=== PATIENT | female | born 1975 | race Two or more races ===

== ENCOUNTER → 2022-03-16 12:36 | Outpatient (BNVA) | payer OTHER, SELFPAY | PROVIDERS: Visit Provider Physician Assistant Medical | DX: S43.402A Unspecified sprain of left shoulder joint, initial encounter (principal); X50.3XXA Overexertion from repetitive movements, initial encounter | CPT/HCPCS: 99203 ==

== ENCOUNTER → 2022-03-23 14:42 | Outpatient (BNVA) | payer OTHER, SELFPAY | PROVIDERS: Visit Provider Physician Assistant Medical | DX: S43.402D Unspecified sprain of left shoulder joint, subsequent encounter (principal); X50.3XXD Overexertion from repetitive movements, subsequent encounter | CPT/HCPCS: 99214 ==

== ENCOUNTER → 2022-04-09 14:00 | Outpatient (BNVA) | payer OTHER, SELFPAY | PROVIDERS: Visit Provider Physician Assistant | DX: S46.912D Strain of unspecified muscle, fascia and tendon at shoulder and upper arm level, left arm, subsequent encounter (principal); X50.3XXD Overexertion from repetitive movements, subsequent encounter; M70.812 Other soft tissue disorders related to use, overuse and pressure, left shoulder | CPT/HCPCS: 73030; 99214 ==

== ENCOUNTER → 2022-04-23 13:13 | Outpatient (BNVA) | payer OTHER, SELFPAY | PROVIDERS: Visit Provider Physician Assistant | DX: M25.512 Pain in left shoulder (principal) | CPT/HCPCS: 99213 ==

== ENCOUNTER → 2022-06-18 14:27 | Outpatient (BNVA) | payer OTHER, SELFPAY | PROVIDERS: Visit Provider Physician Assistant | DX: S43.402D Unspecified sprain of left shoulder joint, subsequent encounter (principal); X50.3XXD Overexertion from repetitive movements, subsequent encounter | CPT/HCPCS: 99214 ==

== ENCOUNTER 2022-07-02 18:29 | Outpatient (REF) | payer OTHER, SELFPAY ==
--- NOTE | ~2022-07-02 | MR_ITS ---
EXAMINATION: MRI SHOULDER WITHOUT CONTRAST, LEFT CLINICAL INFORMATION: Left shoulder pain and numbness. Acute pain. No significant improvement with conservative management. COMPARISON: Left shoulder radiographs dated 04/09/2022. TECHNIQUE: Multisequence MR imaging of the left shoulder was obtained without contrast on a high-field strength scanner. FINDINGS: ROTATOR CUFF: Mild to moderate supraspinatus and infraspinatus tendinosis. Bursal surface partial tearing of the anterior infraspinatus tendon measuring 0.8 x 1.0 cm (AP by ML). No full-thickness rotator cuff tendon tear. No muscle atrophy or fatty infiltration. BICEPS: Mild proximal long head biceps tendinosis. CORACOACROMIAL ARCH: The undersurface of the acromion is curved with no subacromial spur. The acromioclavicular joint is normal. LABRUM/CAPSULE: Focal linear fluid signal within the undersurface of the posterosuperior labrum which could represent a nondisplaced undersurface tear. Intact joint capsule. GLENOHUMERAL JOINT/MARROW: Intact articular cartilage. No marrow edema or evidence of acute osseous injury. MR/MR shoulder LT wo con IMPRESSION: Mild to moderate supraspinatus and infraspinatus tendinosis with bursal surface partial tearing of the anterior infraspinatus tendon measuring 0.8 x 1.0 cm. No full-thickness rotator cuff tendon tear. Mild proximal long head biceps tendinosis. Possible nondisplaced undersurface tear of the posterosuperior labrum.
== END 2022-07-02 18:30 | disposition home or self-care (01) ==
LOC: HO.MRI 18:29
PROVIDERS: Visit Provider Internal Medicine
DX: M25.512 Pain in left shoulder (principal); S49.92XA Unspecified injury of left shoulder and upper arm, initial encounter; X58.XXXA Exposure to other specified factors, initial encounter; Y93.9 Activity, unspecified; Y92.9 Unspecified place or not applicable; Y99.0 Civilian activity done for income or pay
CPT/HCPCS: 73221

== ENCOUNTER → 2022-07-08 15:19 | Outpatient (BNVA) | payer OTHER, SELFPAY | PROVIDERS: Visit Provider Internal Medicine | DX: S43.402D Unspecified sprain of left shoulder joint, subsequent encounter (principal); X50.3XXD Overexertion from repetitive movements, subsequent encounter | CPT/HCPCS: 99213 ==

== ENCOUNTER → 2022-07-22 15:34 | Outpatient (BNVA) | payer OTHER, SELFPAY | PROVIDERS: Visit Provider Physician Assistant | DX: M75.22 Bicipital tendinitis, left shoulder (principal) | CPT/HCPCS: 99213 ==